=== PATIENT | male | born 1965 | race Caucasian/White ===

== ENCOUNTER 2023-06-27 08:07 | Day surgery (SDC) | payer OTHER ==
[2023-06-25 10:38] VITALS: BMI 29.8
[2023-06-27] MEDS ORDERED: LACTATED RINGERS 1,000 ML IV SCH (08:20)
[2023-06-27 08:32] VITALS: TEMP 97.3
[2023-06-27] MEDS ORDERED: PROPOFOL 10 MG/ML 20 ML VIAL IV ONE (09:48)
--- NOTE | 2023-06-27 09:55 | P.GSHP ---
History of Present Illness H&P Date: 06/27/23 Chief Complaint: Screening colonoscopy This a 58-year-old male presents today for screening colonoscopy. Patient denies a significant GI complaints. Past Medical History Past Medical History: COPD, Hypertension, Thyroid Disorder Additional Past Medical History / Comment(s): States problems with sweatglands that cause boils- currently has boil left axilla and a couple in his groin. History of Any Multi-Drug Resistant Organisms: None Reported Past Surgical History: Orthopedic Surgery Additional Past Surgical History / Comment(s): BROKEN ANKLE SURGERY Past Anesthesia/Blood Transfusion Reactions: No Reported Reaction Past Psychological History: No Psychological Hx Reported Smoking Status: Current every day smoker, Heavy tobacco smoker Past Alcohol Use History: Daily Additional Past Alcohol Use History / Comment(s): SMOKES OVER A PACK / DAY., STARTED SMOKING TEEN. DRINKS LESS THAN A 6 PACK/DAY. Past Drug Use History: None Reported - Past Family History Mother Family Medical History: No Reported History Medications and Allergies Home Medications Medication Instructions Recorded Confirmed Type Albuterol Inhaler [Ventolin Hfa 1 - 2 puff INHALATION Q6H PRN 06/25/23 06/27/23 History Inhaler] Levothyroxine Sodium 112 mcg PO DAILY 06/25/23 06/27/23 History Multivitamins, Thera [Multivitamin 1 tab PO DAILY 06/25/23 06/25/23 History (formulary)] Tiotropium 18 Mcg/Puff [Spiriva] 1 puff INHALATION DAILY 06/25/23 06/27/23 History lisinopriL [Zestril] 10 mg PO DAILY 06/25/23 06/27/23 History Allergies Allergy/AdvReac Type Severity Reaction Status Date / Time No Known Allergies Allergy Verified 06/27/23 08:26 Surgical - Exam Vital Signs Temp Pulse Resp BP Pulse Ox 97.3 F L 107 H 16 140/77 98 06/27/23 08:27 06/27/23 08:27 06/27/23 08:27 06/27/23 08:27 06/27/23 08:27 - General well developed, well nourished, no distress - Eyes PERRL - ENT normal pinna - Neck no masses - Respiratory normal expansion - Cardiovascular Rhythm: regular - Abdomen Abdomen: soft, non tender Assessment and Plan Assessment: We'll perform screening colonoscopy.
--- NOTE | 2023-06-27 10:19 | P.OP ---
Date of Procedure: 06/27/23 Preoperative Diagnosis: Screening colonoscopy Postoperative Diagnosis: Colon polyps Procedure(s) Performed: Screening colonoscopy Anesthesia: MAC Surgeon: Franklyn Lantigua Pathology: other (Colon polyp) Condition: stable Disposition: PACU Description of Procedure: The patient's placed on the endoscopy table in the lateral position. He received IV sedation. Digital rectal exam was performed. This revealed no abnormality. The flexible colonoscope was then placed patient anus passed throughout the entire colon. The ileocecal valve was visualized. The cecum appeared normal. Ascending colon was normal as well. In the proximal transverse colon. There was a small sessile polyp was removed with the cold forcep. The remainder the transverse colon was normal. Scope was brought back the descending colon appeared normal. The sigmoid colon appeared normal. In the rectum was another polyp seen. This is removed with the snare. The scope was withdrawn for patient.
[2023-06-27 10:52] VITALS: BP 123/76; PULSE 91; RESP 20
== END 2023-06-27 11:10 | disposition home or self-care (01) ==
LOC: ORWHC2ENDO 08:07
PROVIDERS: ATTEND Surgery
DX: Z12.11 Encounter for screening for malignant neoplasm of colon (principal); D12.3 Benign neoplasm of transverse colon; D12.8 Benign neoplasm of rectum; F17.210 Nicotine dependence, cigarettes, uncomplicated; Z79.890 Hormone replacement therapy; Z79.51 Long term (current) use of inhaled steroids
CPT/HCPCS: 88305; 45380; 45385; J2704

== ENCOUNTER → 2023-07-15 | Outpatient (CLI) | payer OTHER ==
[2023-07-15 15:22] LABS: Basophils # (A) 0.04 X 10*3/uL (0.00-0.10); Basophils % (A) 0.5 %; Eosinophils # (A) 0.05 X 10*3/uL (0.04-0.35); Eosinophils % (A) 0.6 %; HCT 34.9 % (39.6-50.0); HGB 12.3 d/dL (13.0-17.0); Lymphocytes # (A) 1.96 X 10*3/uL (0.90-5.00); MCH 33.9 pg (27.0-32.0); MCHC 35.2 d/dL (32.0-37.0); MCV 96.1 FL (80.0-97.0); Mean Platelet Volume 8.1 FL (9.5-12.2); Monocytes # (A) 0.57 X 10*3/uL (0.20-1.00); Monocytes % (A) 7.3 %; NRBC Per 100 WBC 0 X 10*3/uL (0.00-0.01); Neutrophils # (A) 5.19 X 10*3/uL (1.80-7.70); Neutrophils % (A) 66.3 %; Platelet Count 151 X 10*3/uL (140-440); RBC 3.63 X 10*6/uL (4.40-5.60); RDW 11.5 % (11.5-14.5); WBC 7.83 X 10*3/uL (4.50-10.00)
[2023-07-15 15:27] LABS: Blood Urea Nitrogen 10.5 mg/dL (9.0-27.0); Calcium 9.2 mg/dL (8.7-10.3); Carbon Dioxide 20.1 mmol/L (21.6-31.8); Chloride 97 mmol/L (96-109); Glucose 86 mg/dL (70-110); Potassium 4.7 mmol/L (3.5-5.5); Sodium 129 mmol/L (135-145)
[2023-07-15 17:06] LABS: Appearance,Urine Clear (Clear); Bilirubin,Urine Negative (Negative); Blood,Urine Negative (Negative); Color,Urine Yellow (Yellow); Ketones,Urine Negative (Negative); Nitrite,Urine Negative (Negative); Specific Gravity,Urine 1.006 (1.001-1.030); Urobilinogen,Urine 0.2 E.U./DL
[2023-07-15 17:18] LABS: Bacteria,Urine None Seen (None Seen)
== END | disposition home or self-care (01) ==
LOC: LABPAT 10:10
PROVIDERS: ATTEND Urology
DX: Z01.812 Encounter for preprocedural laboratory examination (principal); D49.4 Neoplasm of unspecified behavior of bladder; R31.29 Other microscopic hematuria
CPT/HCPCS: 36415; 80048; 81001; 85025; 87086

== ENCOUNTER → 2024-07-22 | Outpatient (CLI) | payer OTHER ==
[2024-07-22 13:45] LABS: Creatinine,Urine Random 64.2 mg/dL; Protein/Creatinine Ratio,Urine 0.187
[2024-07-22 15:01] LABS: BUN/Creat Ratio 10.48 Ratio (12.00-20.00); Calcium 9.4 mg/dL (8.7-10.3); Carbon Dioxide 23.9 mmol/L (21.6-31.8); Chloride 104 mmol/L (96-109); Glucose 114 mg/dL (70-110); Magnesium 2.2 mg/dL (1.5-2.4); Phosphorus 3.7 mg/dL (2.4-5.1); Sodium 139 mmol/L (135-145)
[2024-07-22 15:06] LABS: HCT 35.7 % (39.6-50.0); HGB 11.4 g/dL (13.0-17.0); MCH 26.4 pg (27.0-32.0); MCHC 31.9 g/dL (32.0-37.0); MCV 82.6 FL (80.0-97.0); Mean Platelet Volume 9.2 FL (9.5-12.2); NRBC Per 100 WBC 0 X 10*3/uL (0.00-0.01); Platelet Count 186 X 10*3/uL (140-440); RBC 4.32 X 10*6/uL (4.40-5.60); RDW 14.6 % (11.5-14.5); WBC 6.21 X 10*3/uL (4.50-10.00)
[2024-07-22 15:29] LABS: Appearance,Urine Clear (Clear); Bilirubin,Urine Negative (Negative); Blood,Urine Negative (Negative); Color,Urine Yellow (Yellow); Ketones,Urine Negative (Negative); Nitrite,Urine Negative (Negative); Specific Gravity,Urine 1.008 (1.001-1.030); Urobilinogen,Urine 0.2 E.U./DL
[2024-07-22 22:37] LABS: Microalbumin Creatinine Ratio <20 mg/g Cr (0-30)
== END | disposition home or self-care (01) ==
LOC: LABWHC1 11:17
PROVIDERS: ATTEND Internal Medicine
DX: N17.9 Acute kidney failure, unspecified (principal); N39.0 Urinary tract infection, site not specified; R80.9 Proteinuria, unspecified; D64.9 Anemia, unspecified; N25.81 Secondary hyperparathyroidism of renal origin
CPT/HCPCS: 36415; 80048; 81003; 82043; 82570; 83735; 83970; 84100; 84156; 85027

== ENCOUNTER → 2024-09-16 | Outpatient (CLI) | payer OTHER ==
[2024-09-16 15:13] LABS: Basophils # (A) 0.08 X 10*3/uL (0.00-0.10); Basophils % (A) 1.1 %; Eosinophils # (A) 0.18 X 10*3/uL (0.04-0.35); Eosinophils % (A) 2.4 %; HCT 38.3 % (39.6-50.0); HGB 12.1 g/dL (13.0-17.0); Lymphocytes % (A) 33.4 %; MCH 26.1 pg (27.0-32.0); MCHC 31.6 g/dL (32.0-37.0); MCV 82.5 FL (80.0-97.0); Mean Platelet Volume 8.5 FL (9.5-12.2); Monocytes # (A) 0.42 X 10*3/uL (0.20-1.00); Monocytes % (A) 5.6 %; NRBC Per 100 WBC 0 X 10*3/uL (0.00-0.01); Neutrophils # (A) 4.28 X 10*3/uL (1.80-7.70); Neutrophils % (A) 57.1 %; Platelet Count 229 X 10*3/uL (140-440); RBC 4.64 X 10*6/uL (4.40-5.60); RDW 15.4 % (11.5-14.5); WBC 7.49 X 10*3/uL (4.50-10.00)
[2024-09-16 16:05] LABS: % Iron Saturation 11.26 (15.00-50.00); ALT 29 U/L (10-49); AST 37 U/L (14-35); Albumin 4.3 g/dL (3.8-4.9); Albumin/Globulin Ratio 1.48 Ratio (1.60-3.17); Alkaline Phosphatase 176 U/L (41-126); BUN/Creat Ratio 6.95 Ratio (12.00-20.00); Blood Urea Nitrogen 13.9 mg/dL (9.0-27.0); Calcium 9.5 mg/dL (8.7-10.3); Carbon Dioxide 22.8 mmol/L (21.6-31.8); Chloride 107 mmol/L (96-109); Globulin 2.9 g/dL (1.6-3.3); Glucose 90 mg/dL (70-110); Iron 33 UG/DL (65-175); Potassium 4.7 mmol/L (3.5-5.5); Sodium 142 mmol/L (135-145); Total Bilirubin 0.2 mg/dL (0.3-1.2); Total Iron Binding Capacity 293 UG/DL (228-460); Total Protein 7.2 g/dL (6.2-8.2)
== END | disposition home or self-care (01) ==
LOC: LABWHC1 10:02
PROVIDERS: ATTEND Nurse Practitioner Family
DX: D64.9 Anemia, unspecified (principal); R74.8 Abnormal levels of other serum enzymes
CPT/HCPCS: 36415; 80053; 82728; 83540; 83550; 85025

== ENCOUNTER 2025-01-28 21:06 | Observation (INO) | payer OTHER ==
[2025-01-28 21:16] LABS: Glucose,Whole Blood 81 mg/dL (70-110)
--- NOTE | 2025-01-28 21:39 | ED ---
General Adult HPI - General Chief complaint: Seizure Stated complaint: Seizure Time Seen by Provider: 01/28/25 21:13 Source: patient, RN notes reviewed, old records reviewed Mode of arrival: EMS Limitations: no limitations - History of Present Illness Initial comments: 59-year-old male presenting for evaluation of seizure-like activity both at home and during EMS transport. Patient has remote history of seizure and CVA which occurred about 1 year ago. Family members indicate that he has not had a seizure in the past 1 year. Family states that he was acting abnormal and had a generalized shaking. Patient had a repeat episode that was apparently witnessed by EMS. Patient is able to answer questions but slow to respond and has mild slurred speech. Family states he has been going to speech therapy after his previous CVA 1 year ago they believe that the speech may be slightly worse than baseline. - Related Data Home Medications Medication Instructions Recorded Confirmed Albuterol Inhaler [Ventolin Hfa 1 - 2 puff INHALATION Q6H PRN 06/25/23 07/23/23 Inhaler] Levothyroxine Sodium 112 mcg PO DAILY 06/25/23 07/23/23 Tiotropium 18 Mcg/Puff [Spiriva] 2 puff INHALATION DAILY 06/25/23 07/23/23 lisinopriL [Zestril] 10 mg PO DAILY 06/25/23 07/23/23 Sulfamethox-Tmp 800-160Mg [Bactrim 1 tab PO Q12HR 07/17/23 07/23/23 DS 800-160 mg] Allergies Allergy/AdvReac Type Severity Reaction Status Date / Time No Known Allergies Allergy Verified 07/23/23 14:20 Review of Systems ROS Statement: Those systems with pertinent positive or pertinent negative responses have been documented in the HPI. ROS Other: All systems not noted in ROS Statement are negative. Past Medical History Past Medical History: COPD, Hypertension, Thyroid Disorder Additional Past Medical History / Comment(s): States problems with sweatglands that cause boils- currently has boil left axilla and a couple in his groin. History of Any Multi-Drug Resistant Organisms: None Reported Past Surgical History: Orthopedic Surgery Additional Past Surgical History / Comment(s): BROKEN ANKLE SURGERY Past Anesthesia/Blood Transfusion Reactions: No Reported Reaction Past Psychological History: No Psychological Hx Reported Smoking Status: Current every day smoker, Heavy tobacco smoker Past Alcohol Use History: Daily Past Drug Use History: None Reported - Past Family History Mother Family Medical History: No Reported History General Exam Limitations: no limitations General appearance: alert, in no apparent distress Head exam: Present: atraumatic, normocephalic Eye exam: Present: normal appearance, PERRL ENT exam: Present: normal exam Neck exam: Present: normal inspection. Absent: tenderness, meningismus Respiratory exam: Present: normal lung sounds bilaterally. Absent: respiratory distress, wheezes Cardiovascular Exam: Present: regular rate, normal rhythm GI/Abdominal exam: Present: soft. Absent: distended Extremities exam: Present: normal inspection, normal capillary refill Neurological exam: Present: alert, oriented X3 (Slow to respond), motor sensory deficit (Patient is dysarthric, no localizing features, NIH of 1) Course Vital Signs 01/28/25 21:09 Temperature 98.6 F Pulse Rate 85 Respiratory 16 Rate Blood Pressure 121/106 O2 Sat by Pulse 98 Oximetry - Reevaluation(s) Reevaluation #1: 01/28/25 22:51 Was able to get further history from the who indicates that he has not had a seizure in 1 year but that he does have worsening expressive aphasia and dysarthria when he is tired or at the end of the day. His speech is slightly off baseline but not significantly according to the . He also reports that he has a slight facial droop which also seems to worsen when he is tired. Medical Decision Making - Medical Decision Making Was pt. sent in by a medical professional or institution (, PA, INTERNAL MEDICINE NURSE, urgent care, hospital, or halfway...) When possible be specific @ -No Did you speak to anyone other than the patient for history (EMS, parent, family, police, friend...)? What history was obtained from this source @ -No Did you review nursing and triage notes (agree or disagree)? Why? @ -I reviewed and agree with nursing and triage notes Were old charts reviewed (outside hosp., previous admission, EMS record, old EKG, old radiological studies, urgent care reports/EKG's, halfway records)? Report findings @ -No old charts were reviewed Differential Seizure: Recurrent seizure disorder, febrile seizure, alcohol withdrawal, stimulants, meningitis, encephalitis, intercranial hemorrhage, intracranial tumor, stroke, eclampsia, thyrotoxicosis, hypocalcemia, hyponatremia, hypernatremia, hypomagnesemia, psychogenic, this is not meant to be an all-inclusive list. EKG interpreted by me (3pts min.). @ -Sinus rhythm rate of 69, DC interval 172, QRS duration 101, QTc [address] segment elevation. X-rays interpreted by me (1pt min.). @ -None done CT interpreted by me (1pt min.). @ -The brain showing chronic changes without acute intracranial hemorrhage, CT angiography negative for obstruction or aneurysmal change. U/S interpreted by me (1pt. min.). @ -None done What testing was considered but not performed or refused? (CT, X-rays, U/S, labs)? Why? @ -None What meds were considered but not given or refused? Why? @ -None Did you discuss the management of the patient with other professionals ( professionals i.e. , PA, INTERNAL MEDICINE NURSE, lab, RT, psych nurse, web content & social media manager, home health occupational therapist, teacher, chief administrative officer, disease case manager rn)? Give summary @ - Sheet, will admit Was smoking cessation discussed for >3mins.? @ -No Was critical care preformed (if so, how long)? @ -No Were there social determinants of health that impacted care today? How? (Homelessness, low income, unemployed, alcoholism, drug addiction, transportation, low edu. Level, literacy, decrease access to med. care, prison, rehab)? @ -No Was there de-escalation of care discussed even if they declined (Discuss DNR or withdrawal of care, Hospice)? DNR status @ -No What co-morbidities impacted this encounter? (DM, HTN, Smoking, COPD, CAD, Can cer, CVA, ARF, Chemo, Hep., AIDS, mental health diagnosis, sleep apnea, morbid obesity)? @Seizure, previous CVA with residual deficit. Was patient admitted / discharged? Hospital course, mention meds given and route, prescriptions, significant lab abnormalities, going to OR and other pertinent info. @ -[59-year-old male who presents with seizure activity at home history of seizure disorder currently on Keppra. Initial history limited but throughout the patient's stay in the emergency department further history is obtained from family members. Patient has a CT without contrast showing chronic changes encephalomalacia, no intracranial hemorrhage, CT angiography is negative. Laboratory testing is unremarkable. Patient returns to close to baseline but indicates that his speech is slightly worse than normal. She does indicate that this occurs with stress or fatigue. Patient will be observed overnight, started on IV Keppra monitor with seizure precautions and consultation to neur ology is placed. Undiagnosed new problem with uncertain prognosis? @ -No Drug Therapy requiring intensive monitoring for toxicity (Heparin, Nitro, Insulin, Cardizem)? @ -No Were any procedures done? @ -No Diagnosis/symptom? @ -[Seizure, expressive aphasia, dysarthria Acute, or Chronic, or Acute on Chronic? @ -Acute on chronic Uncomplicated (without systemic symptoms) or Complicated (systemic symptoms)? @ -Default Side effects of treatment? @ -No Exacerbation, Progression, or Severe Exacerbation? @ -No Poses a threat to life or bodily function? How? (Chest pain, USA, ID, pneumonia, PE, COPD, DKA, ARF, appy, cholecystitis, CVA, Diverticulitis, Homicidal, Suicidal, threat to staff... and all critical care pts) @ -Yes, status epilepticus, CVA - Lab Data Result diagrams: 01/28/25 21:30 01/28/25 21:30 Lab Results 01/28/25 01/28/25 01/28/25 Range/Units 21:14 21:30 21:30 WBC 9.1 (3.8-10.6) k/uL RBC 4.87 (4.30-5.90) m/uL Hgb 13.4 (13.0-17.5) gm/dL Hct 40.8 (39.0-53.0) % MCV 83.7 (80.0-100.0) fL MCH 27.5 (25.0-35.0) pg MCHC 32.9 (31.0-37.0) g/dL RDW 14.4 (11.5-15.5) % Plt Count 203 (150-450) k/uL MPV 6.4 Neutrophils % 59 % Lymphocytes % 33 % Monocytes % 4 % Eosinophils % 2 % Basophils % 1 % Neutrophils # 5.3 (1.3-7.7) k/uL Lymphocytes # 3.0 (1.0-4.8) k/uL Monocytes # 0.4 (0-1.0) k/uL Eosinophils # 0.2 (0-0.7) k/uL Basophils # 0.1 (0-0.2) k/uL Sodium 137 (137-145) mmol/L Potassium 3.9 (3.5-5.1) mmol/L Chloride 108 H (98-107) mmol/L Carbon Dioxide 22 (22-30) mmol/L Anion Gap 7 mmol/L BUN 14 (9-20) mg/dL Creatinine 1.99 H (0.66-1.25) mg/dL Est GFR (CKD-EPI)AfAm 42 (>60 ml/min/1.73 sqM) Est GFR (CKD-EPI)NonAf 36 (>60 ml/min/1.73 sqM) Glucose 71 L (74-99) mg/dL POC Glucose (mg/dL) 81 (70-110) mg/dL POC Glu Materials Manager RIKY Damon Calcium 8.9 (8.4-10.2) mg/dL Magnesium 2.0 (1.6-2.3) mg/dL Total Bilirubin 0.6 (0.2-1.3) mg/dL AST 22 (17-59) U/L ALT 15 (4-49) U/L Alkaline Phosphatase 142 H (38-126) U/L Total Protein 7.5 (6.3-8.2) g/dL Albumin 4.2 (3.5-5.0) g/dL Urine Color Urine Appearance (Clear) Urine pH (5.0-8.0) Ur Specific [place] (1.001-1.035) Urine Protein (Negative) Urine Glucose (UA) (Negative) Urine Ketones (Negative) Urine Blood (Negative) Urine Nitrite (Negative) Urine Bilirubin (Negative) Urine Urobilinogen (<2.0) mg/dL Ur Leukocyte Esterase (Negative) Urine Opiates Screen (NotDetected) Ur Oxycodone Screen (NotDetected) Urine Methadone Screen (NotDetected) Ur Barbiturates Screen (NotDetected) U Tricyclic Antidepress (NotDetected) Ur Phencyclidine Scrn (NotDetected) Ur Amphetamines Screen (NotDetected) U Methamphetamines Scrn (NotDetected) U Benzodiazepines Scrn (NotDetected) Urine Cocaine Screen (NotDetected) U Marijuana (THC) Screen (NotDetected) Serum Alcohol <10 mg/dL 04/03/25 Range/Units 22:12 WBC (3.8-10.6) k/uL RBC (4.30-5.90) m/uL Hgb (13.0-17.5) gm/dL Hct (39.0-53.0) % MCV (80.0-100.0) fL MCH (25.0-35.0) pg MCHC (31.0-37.0) g/dL RDW (11.5-15.5) % Plt Count (150-450) k/uL MPV Neutrophils % % Lymphocytes % % Monocytes % % Eosinophils % % Basophils % % Neutrophils # (1.3-7.7) k/uL Lymphocytes # (1.0-4.8) k/uL Monocytes # (0-1.0) k/uL Eosinophils # (0-0.7) k/uL Basophils # (0-0.2) k/uL Sodium (137-145) mmol/L Potassium (3.5-5.1) mmol/L Chloride (98-107) mmol/L Carbon Dioxide (22-30) mmol/L Anion Gap mmol/L BUN (9-20) mg/dL Creatinine (0.66-1.25) mg/dL Est GFR (CKD-EPI)AfAm (>60 ml/min/1.73 sqM) Est GFR (CKD-EPI)NonAf (>60 ml/min/1.73 sqM) Glucose (74-99) mg/dL POC Glucose (mg/dL) (70-110) mg/dL POC Glu Materials Manager ID Calcium (8.4-10.2) mg/dL Magnesium (1.6-2.3) mg/dL Total Bilirubin (0.2-1.3) mg/dL AST (17-59) U/L ALT (4-49) U/L Alkaline Phosphatase (38-126) U/L Total Protein (6.3-8.2) g/dL Albumin (3.5-5.0) g/dL Urine Color Colorless Urine Appearance Clear (Clear) Urine pH 5.5 (5.0-8.0) Ur Specific [place] 1.006 (1.001-1.035) Urine Protein Negative (Negative) Urine Glucose (UA) Trace H (Negative) Urine Ketones Negative (Negative) Urine Blood Negative (Negative) Urine Nitrite Negative (Negative) Urine Bilirubin Negative (Negative) Urine Urobilinogen <2.0 (<2.0) mg/dL Ur Leukocyte Esterase Negative (Negative) Urine Opiates Screen Not Detected (NotDetected) Ur Oxycodone Screen Not Detected (NotDetected) Urine Methadone Screen Not Detected (NotDetected) Ur Barbiturates Screen Not Detected (NotDetected) U Tricyclic Antidepress Not Detected (NotDetected) Ur Phencyclidine Scrn Not Detected (NotDetected) Ur Amphetamines Screen Not Detected (NotDetected) U Methamphetamines Scrn Not Detected (NotDetected) U Benzodiazepines Scrn Not Detected (NotDetected) Urine Cocaine Screen Not Detected (NotDetected) U Marijuana (THC) Screen Not Detected (NotDetected) Serum Alcohol mg/dL Disposition Clinical Impression: Generalized seizure Disposition: ADMITTED IP TO THIS [facility] Condition: Stable Instructions (If sedation given, give patient instructions): Seizure/Epilepsy Discharge Instructions & Follow-Up Is patient prescribed a controlled substance at d/c from ED?: No Referrals: Hill Nye MD [Primary Care Provider] - 1-2 days Time of Disposition: 22:54
[2025-01-28] MEDS: SODIUM CHLORIDE 0.9% 1,000 ML IV STA (21:50)
[2025-01-28 21:52] LABS: Basophils # (A) 0.1 k/uL (0-0.2); Basophils % (A) 1 %; Eosinophils # (A) 0.2 k/uL (0-0.7); Eosinophils % (A) 2 %; HCT 40.8 % (39.0-53.0); HGB 13.4 gm/dL (13.0-17.5); Lymphocytes % (A) 33 %; MCH 27.5 pg (25.0-35.0); MCHC 32.9 g/dL (31.0-37.0); MCV 83.7 fL (80.0-100.0); Mean Platelet Volume 6.4; Monocytes # (A) 0.4 k/uL (0-1.0); Monocytes % (A) 4 %; Neutrophils # (A) 5.3 k/uL (1.3-7.7); Neutrophils % (A) 59 %; Platelet Count 203 k/uL (150-450); RBC 4.87 m/uL (4.30-5.90); RDW 14.4 % (11.5-15.5); WBC 9.1 k/uL (3.8-10.6)
--- NOTE | 2025-01-28 22:09 | CT ---
EXAMINATION TYPE: CT brain wo con CT DLP: 1157.8 mGycm, Automated exposure control for dose reduction was used. DATE OF EXAM: 01/28/2025 9:46 PM COMPARISON: None. CLINICAL INDICATION:Male, 59 years old with history of seizure activity, Pt to ED for seizure like ac tivity lasting approx 1 min per EMS. No prior TECHNIQUE: Brain: Multiple axial CT images of the brain were obtained without IV contrast. . Coronal and sagitta l reformats reviewed. FINDINGS: Brain: Extra-axial spaces: No abnormal extra-axial fluid collections. Ventricular system: Within normal limits Cerebral parenchyma: Cerebral atrophy. No acute intraparenchymal hemorrhage or mass effect. Encephalo malacia within the bilateral temporal parietal watershed regions from prior injury. The boyd-white ju nction is well differentiated. Scattered hypoattenuating areas are seen within the periventricular wh ite matter. Cerebellum: Unremarkable. Mass effect: No evidence of midline shift. Intracranial vasculature: Atherosclerotic calcifications of the intracranial vessels. Soft tissues: Normal. Calvarium/osseous structures: No depressed skull fracture. Paranasal sinuses and mastoid air cells: Clear Visualized orbits: Orbital contents are intact. IMPRESSION: 1. No acute intracranial process. 2. Encephalomalacia within the bilateral temporal parietal watershed regions from prior injury. 3. Nonspecific white matter changes, likely secondary to chronic small vessel ischemic disease. [facility], , 01/28/2025 10:07 PM
--- NOTE | 2025-01-28 22:12 | CT ---
EXAMINATION TYPE: CT angio head neck CT DLP: 493.7 mGycm, Automated exposure control for dose reduction was used. DATE OF EXAM: 01/28/2025 9:57 PM COMPARISON: CT brain of the same date. CLINICAL INDICATION:Male, 59 years old with history of seizure, postictal; PHH, Pt to ED for seizure like activity lasting approx 1 min per EMS. No prior TECHNIQUE: Axially acquired helical CT angiogram of the head and neck was obtained with contrast util izing 75 cc of Isovue-370 administered intravenously. Axial images are supplemented with 3D reconstru ctions which were post-processed at an independent workstation. NASCET criteria used. MIP imaging performed on a separate workstation and submitted for review. FINDINGS: CTA HEAD: No evidence of acute intracranial hemorrhage, mass effect, or midline shift. The ventricles, sulci, a nd cisterns are unremarkable. The visualized portions of the internal carotid arteries, middle cerebral arteries, anterior cerebral arteries, and posterior cerebral arteries are patent. The basilar and vertebral arteries are patent. CTA NECK: Right Carotid System: The common carotid artery and external carotid artery are patent. The carotid bifurcation demonstrate s no evidence of hemodynamically significant stenosis. The remaining portions of the internal carotid artery demonstrate normal size without significant narrowing. Left Carotid System: The common carotid artery and external carotid artery are patent. The carotid bifurcation demonstrate s no evidence of hemodynamically significant stenosis. The remaining portions of the internal carotid artery demonstrate normal size without significant narrowing. Vertebral arteries are patent without evidence hemodynamically significant stenosis. There is a four-vessel aortic arch. The origins of the great vessels are patent. No evidence of hemod ynamically significant stenosis. IMPRESSION: 1. No evidence of dissection of the cervical internal carotid arteries or vertebral arteries or any e vidence of significant stenosis at the carotid bifurcations. 2. No evidence of high-grade stenosis or intracranial aneurysm. [facility], , 01/28/2025 10:10 PM
[2025-01-28 22:16] LABS: ALT 15 U/L (4-49); AST 22 U/L (17-59); African American GFR (CKD) 42 (>60 ml/min/1.73 sqM); Albumin 4.2 g/dL (3.5-5.0); Alcohol <10 mg/dL; Alkaline Phosphatase 142 U/L (38-126); Anion Gap 7 mmol/L; Blood Urea Nitrogen 14 mg/dL (9-20); Calcium 8.9 mg/dL (8.4-10.2); Carbon Dioxide 22 mmol/L (22-30); Chloride 108 mmol/L (98-107); Glucose 71 mg/dL (74-99); Non-African American GFR(CKD) 36 (>60 ml/min/1.73 sqM); Potassium 3.9 mmol/L (3.5-5.1); Sodium 137 mmol/L (137-145); Total Bilirubin 0.6 mg/dL (0.2-1.3); Total Protein 7.5 g/dL (6.3-8.2)
[2025-01-28 22:35] LABS: Appearance,Urine Clear (Clear); Bilirubin,Urine Negative (Negative); Blood,Urine Negative (Negative); Color,Urine Colorless; Glucose,Urine (UA) Trace (Negative); Ketones,Urine Negative (Negative); Leukocyte Esterase,Urine Negative (Negative); Nitrite,Urine Negative (Negative); PH, Urine 5.5 (5.0-8.0); Protein,Urine Negative (Negative); Specific Gravity,Urine 1.006 (1.001-1.035); Urobilinogen,Urine <2.0 mg/dL (<2.0)
[2025-01-28 22:47] LABS: Amphetamine Screen,Urine Not Detected (NotDetected); Barbiturate Screen,Urine Not Detected (NotDetected); Benzodiazepines Screen,Urine Not Detected (NotDetected); Cocaine Screen,Urine Not Detected (NotDetected); Methadone Screen, Urine Not Detected (NotDetected); Opiate Screen,Urine Not Detected (NotDetected); Oxycodone Screen, Urine Not Detected (NotDetected); Phencyclidine Screen,Urine Not Detected (NotDetected); Tricyclic Antidepressant,Urine Not Detected (NotDetected); Urn Cannabinoid Scrn Not Detected (NotDetected)
[2025-01-28] MEDS: levETIRAcetam IV 500 MG/5 ML VIAL IVP SCH (22:49)
[2025-01-28] MEDS ORDERED: NALOXONE 0.4 MG/ML 1 ML VIAL IV PRN (22:50)
[2025-01-28] MEDS ORDERED: ACETAMINOPHEN TAB 325 MG TAB PO PRN (22:50)
[2025-01-28] MEDS: SODIUM CHLORIDE 0.9% 1,000 ML IV SCH (22:51)
[2025-01-29 07:32] LABS: African American GFR (CKD) 45 (>60 ml/min/1.73 sqM); Anion Gap 7 mmol/L; Blood Urea Nitrogen 13 mg/dL (9-20); Calcium 9.1 mg/dL (8.4-10.2); Carbon Dioxide 21 mmol/L (22-30); Chloride 111 mmol/L (98-107); Glucose 84 mg/dL (74-99); Non-African American GFR(CKD) 39 (>60 ml/min/1.73 sqM); Potassium 4.2 mmol/L (3.5-5.1); Sodium 139 mmol/L (137-145)
[2025-01-29 07:57] VITALS: TEMP 97.7
[2025-01-29 14:05] VITALS: BP 135/84; PULSE 70; RESP 16
[2025-01-29] MEDS ORDERED: ALBUTEROL HFA INHALER INHALATION PRN (14:25)
[2025-01-29] MEDS ORDERED: methocarbamoL 500 MG TAB PO PRN (14:25)
[2025-01-29] MEDS ORDERED: traMADol 50 MG TAB PO PRN (14:25)
[2025-01-29] MEDS: MULTIVITAMINS, THERA 1 EACH TAB PO SCH (15:49)
[2025-01-29] MEDS: ASPIRIN 81 MG PO SCH (15:49)
[2025-01-29] MEDS: DAPAGLIFLOZIN PROPANEDIOL 5 MG TABLET PO SCH (15:49)
[2025-01-29] MEDS: ATORVASTATIN 40 MG TAB PO SCH (15:49)
[2025-01-29] MEDS: THIAMINE 100 MG TAB PO SCH (15:49)
[2025-01-29] MEDS: FERROUS SULFATE 325 MG TAB PO SCH (15:49)
[2025-01-29] MEDS: DOXYCYCLINE 100 MG TABLET PO SCH (15:49)
[2025-01-29] MEDS: FOLIC ACID 1 MG TAB PO SCH (15:49)
[2025-01-29] MEDS: LEVOTHYROXINE 50 MCG TAB PO SCH (15:49)
[2025-01-29] MEDS: VITAMIN B12 500 MCG PO SCH (15:50)
[2025-01-29] MEDS ORDERED: FORMOTEROL FUMARATE 20 MCG/2 ML NEBU INHALATION SCH (20:00)
--- NOTE | 2025-01-29 21:26 | HP ---
HISTORY AND PHYSICAL This is a combined history and physical and discharge summary. CHIEF COMPLAINT: Seizure. HISTORY OF PRESENT ILLNESS: A 59-year-old gentleman with a past medical history of seizure disorder, on Keppra, who had apparently generalized tonic-clonic seizure at home. The patient was taken to [facility] and admitted for further evaluation and treatment at this time. The initial CAT scan of the brain showed no acute abnormality, but encephalomalacia with bilateral temporal and parietal watershed area with prior injury. There is no history of any fever, rigors, or chills at this time. Neurology evaluation in progress. PAST MEDICAL HISTORY: History of COPD, hypertension, and hypothyroidism. Rest of the history and rest of the chart is also reviewed. HOME MEDICATIONS: Reviewed and include Ultram. Dose and rest of medication reviewed. ALLERGIES: None. FAMILY HISTORY: No history of heart disease or strokes in the family. SOCIAL HISTORY: Heavy alcohol and heavy tobacco. REVIEW OF SYSTEMS: Fourteen-point review of systems negative except as mentioned earlier. PHYSICAL EXAMINATION: VITAL SIGNS: Pulse 70, blood pressure 135/80, respirations 16. HEENT: Conjunctivae normal. NECK: No JVD. CARDIOVASCULAR: S1, S2. RESPIRATIONS: Breath sounds diminished at the bases. A few scattered rhonchi. ABDOMEN: Soft. LEGS: No edema. NERVOUS SYSTEM: Diffusely weak. SKIN: No rashes. LABORATORY DATA: Reviewed. CT scan reviewed. ASSESSMENT: 1. Generalized tonic-clonic seizures and breakthrough seizures. 2. History of EtOH. 3. History of nicotine dependence. 4. Watershed infarctions in the CAT scan of the brain. 5. Chronic obstructive pulmonary disease. 6. History of nicotine dependence. RECOMMENDATIONS AND DISCUSSION: This is a 59-year-old gentleman, who presented with multiple complex medical issues. We will monitor the patient closely. Continue with the current management, continue with symptomatic treatment. I would recommend to resume the home medications. The patient is on Keppra now. Recommended close followup with primary physician and Neurology in the outpatient setting. The patient is extremely keen on going home at this time. We will discharge the patient once cleared by Neurology. See orders for details. The patient had previous workups, but the patient will need further workup later. No driving for 6 months per [employer] laws. MMODL / IJN: [id number] /
[2025-01-30] MEDS ORDERED: NON FORMULARY DRUG (Umeclidinium Brm/Vilanterol Tr [Anoro Ellipta 62.5-25 Mcg Inh] 1 EACH INHALATION SCH (08:00)
[2025-01-30] MEDS ORDERED: TIOTROPIUM 2.5 MCG INHALER INHALATION SCH (08:00)
--- NOTE | 2025-01-30 15:22 | P.CNNES ---
History of Present Illness Consult date: 01/29/25 Requesting physician: Tim Coreas Reason for Consult: Seizure History of Present Illness: Patient is a 59-year-old right-handed male came to the hospital by ambulance yesterday at 9:06 PM for breakthrough seizure. Patient's was present, who provided most of the history. Patient has history of an acute stroke in end of October or early November 2023 in which he developed some aphasia. He did not seek medical attention. Patient had another stroke in December 2023, which affected his left side of the body, for which it sounds like he received thrombolysis and developed some brain bleed. He underwent MRI of the brain at [facility] and they were found to have 2 strokes. Patient has some residual expressive aphasia since the stroke. He gets facial droop when he is tired. Patient's states that the stroke was believed to be from "fatty tissue from high cholesterol that buds off". He is currently on aspirin 81 mg and statins. Patient's first seizure occurred in end of March 2024 when he had 3 seizures in a row. He was started on Keppra 1000 mg twice daily and has been doing well since then. No further recurrence of seizures, until just prior to arrival this time. Patient's states that yesterday he was at work, came back home. Went to the bed and then came downstairs and was noted to have labored breathing. He wanted to go outside to let the dog out, but he ended up sitting in the chair and then started having a seizure, witnessed by his sister. EMS was called. Patient is edentulous, therefore did not bite his tongue. No loss of control of urine. As per EMS flowsheet, when they arrived, patient was sitting in a recliner inside his home in care of family. Patient sister states, she came downstairs to find him breathing heavy and staring into space. She called 911. When EMS arrived, patient was alert and confused. He was slow to respond to verbal cues and was able to follow some simple commands. Last known well was 3 hours prior. Sister stated he has history of stroke and seizures. Last seizure was last year. Patient began to show signs of decorticate posturing and was given Versed. Posturing subsided, patient became more confused and unable to follow any commands. Patient denies any history of diabetes. Vital signs at the scene was blood pressure 165/85 pulse rate 87 respiration 18 saturation 100%. Patient's vitals on arrival blood pressure 121/106 came down to 136/80, pulse rate 85 temperature 98.6. Patient has been afebrile. Blood test shows normal CBC, CMP with slightly elevated creatinine 1.99. UA negative, urine drug screen negative, blood alcohol level negative. CT head showed no acute intracranial process. Encephalomalacia within the bilateral temporal parietal watershed regions from prior injury. Nonspecific white matter changes, likely secondary to chronic small vessel ischemic disease. I personally reviewed CT head and on my review appears posterior temporal bilaterally. EKG showed sinus rhythm. CTA of head and neck revealed no evidence of dissection of the cervical internal carotid arteries or vertebral arteries or any evidence of significant stenosis at the carotid bifurcations. N o evidence of high-grade stenosis or intracranial aneurysm. Home medications include Keppra 1000 mg twice daily, aspirin 81 mg, Lipitor 40 mg, folic acid thiamine levothyroxine tramadol 50 mg twice daily as needed. Patient sporadically takes tramadol. He received 60 tablets of tramadol, and he has been using it sporadically over 3 months. Patient did take 1 tablet of tramadol shortly before his seizure. He has smoked half pack per day since age 15-16 and still smokes. He used to drink, but has not done for 1 year. Patient denies diabetes, although he is taking Jardiance. He believes that he is taking this medication for "to prevent kidney injury". Review of Systems All pertinent positive and negative review of systems mentioned in the HPI. Otherwise unremarkable. Past Medical History Past Medical History: COPD, Hypertension, Thyroid Disorder Additional Past Medical History / Comment(s): States problems with sweatglands that cause boils- currently has boil left axilla and a couple in his groin. History of Any Multi-Drug Resistant Organisms: None Reported Past Surgical History: Orthopedic Surgery Additional Past Surgical History / Comment(s): BROKEN ANKLE SURGERY Past Anesthesia/Blood Transfusion Reactions: No Reported Reaction Past Psychological History: No Psychological Hx Reported Smoking Status: Current every day smoker, Heavy tobacco smoker Past Alcohol Use History: Daily Additional Past Alcohol Use History / Comment(s): SMOKES OVER A PACK / DAY., STARTED SMOKING TEEN. DRINKS LESS THAN A 6 PACK/DAY. Past Drug Use History: None Reported - Past Family History Mother Family Medical History: No Reported History Medications and Allergies Home Medications Medication Instructions Recorded Confirmed Type Albuterol Inhaler [Ventolin Hfa 2 puff INHALATION RT-Q4H PRN 06/25/23 01/29/25 History Inhaler] Acetaminophen Tab [Tylenol] 650 mg PO Q6HR PRN tab 01/29/25 Rx Aspirin EC [Ecotrin Low Dose] 81 mg PO DAILY 01/29/25 01/29/25 History Atorvastatin [Lipitor] 40 mg PO DAILY 01/29/25 01/29/25 History Doxycycline Monohydrate [Monodox] 100 mg PO DAILY 01/29/25 01/29/25 History Empagliflozin [Jardiance] 10 mg PO AC-BRKFST 01/29/25 01/29/25 History Ferrous Sulfate [Iron (65 MG 325 mg PO Q2D 01/29/25 01/29/25 History Elemental)] Folic Acid 1 mg PO DAILY 01/29/25 01/29/25 History Levothyroxine Sodium [Synthroid] 50 mcg PO DAILY 01/29/25 01/29/25 History Thiamine [Vitamin B-1] 100 mg PO DAILY 01/29/25 01/29/25 History Tiotropium 2.5 Mcg/Puff [Spiriva 2 puff INHALATION RT-DAILY 01/29/25 01/29/25 History Respimat 2.5 Mcg] Umeclidinium Brm/Vilanterol Tr 1 puff INHALATION RT-DAILY 01/29/25 01/29/25 History [Anoro Ellipta 62.5-25 Mcg INH] Vitamin B Complex/Folic Acid 0.4 mg PO DAILY 01/29/25 01/29/25 History [Vitamin B Complex] Vitamin B-12 500mcg Chewable 500 mcg PO DAILY 01/29/25 01/29/25 History levETIRAcetam [Keppra] 1,000 mg PO BID 01/29/25 01/29/25 History methocarbamoL [Robaxin] 500 mg PO QID PRN 01/29/25 01/29/25 History Allergies Allergy/AdvReac Type Severity Reaction Status Date / Time No Known Allergies Allergy Verified 01/29/25 08:30 Physical Examination - Vital Signs Vital Signs: Vital Signs Temp Pulse Pulse Pulse Resp BP BP 01/29/25 09:00 67 01/29/25 07:00 97.7 F 67 15 111/72 01/29/25 00:19 98.0 F 77 15 119/68 01/28/25 23:33 98.6 F 01/28/25 23:20 76 18 136/80 01/28/25 21:09 98.6 F 85 16 121/106 Pulse Ox 01/29/25 09:00 01/29/25 07:00 99 01/29/25 00:19 100 01/28/25 23:33 01/28/25 23:20 99 01/28/25 21:09 98 Intake and Output 01/28/25 01/29/25 01/29/25 22:59 06:59 14:59 Other: Voiding Method Toilet # Voids 1 2 Weight 97.795 kg 97.795 kg Patient is a middle aged male, in no acute distress. Patient is alert awake, having his lunch. Patient has significant expressive aphasia. He knows the ear, but not the earlobe. He was able to name the first but not the knuckles. He can name pen and button. He cannot repeat at all. He cannot write. He is able to read. Speech and language functions are normal. Patient can name and repeat very well. No aphasia or dysarthria. Attention, concentration and fund of knowledge is adequate. On cranial nerve examination, pupils are equal, round and reacting to light, visual schumacher are full on confrontation, with no neglect on double simultaneous stimulation. Extraocular muscles are intact with no nystagmus. Face is symmetric, tongue protrudes to the midline. Palatal elevation and sensation normal, hearing and shoulder shrug normal, facial sensation normal. On muscle strength testing, there is no pronator drift. Patient has significant issue with his left shoulder with pain, therefore not checked. Rest of the examination in the upper and lower limbs are normal. Deep tendon reflexes are symmetric 2 at the biceps, 2 brachioradialis, 2 at the knees and absent ankles and plantars downgoing. Sensory to touch is equal with no neglect on double simultaneous stimulation. Cerebellar function showed no ataxia for [id number] testing. No dysdiadochokinesia. No ataxia for [id number] testing on either side. Tone and bulk of muscles normal. Gait deferred.. On general examination, there is no carotid bruit or murmur, S1-S2 audible. Chest is clear on consultation. Abdomen is soft nontender. No organomegaly, bowel sounds present. Peripheral pulses are present. No peripheral edema. Results - Laboratory Findings CBC and BMP: 01/28/25 21:30 01/29/25 06:51 Abnormal Lab Findings: Abnormal Labs 01/28/25 01/28/25 01/29/25 21:30 22:12 06:51 Chloride 108 H 111 H Carbon Dioxide 21 L Creatinine 1.99 H 1.86 H Glucose 71 L Alkaline Phosphatase 142 H Urine Glucose (UA) Trace H Assessment and Plan Assessment: * Breakthrough seizure, likely related to lowering of seizure threshold from use of tramadol. * Seizure disorder since March 2024 when he had 3 seizures [id number]. He has been stable on Keppra, with no seizures until this current breakthrough seizure last night. * History of multiple strokes with residual expressive aphasia * Tobacco use * Hypertension Plan: * Patient's seizure has been very well-controlled on Keppra 1000 mg twice daily. He will be continued on the same. * Stop tramadol, as it probably lowered the seizure threshold. * Patient follows up with Dr. Keller office, and has an appointment on 02/02/2025. * CTA of head and neck revealed no evidence of dissection of the cervical internal carotid arteries or vertebral arteries or any evidence of significant stenosis at the carotid bifurcations. No evidence of high-grade stenosis or intracranial aneurysm. * I spoke to patient's about patient's current neurological status. I have never seen patient in the past. Per patient's , he is completely back to baseline. Patient is very desperate to go home. We will hold off on EEG or any other testing. * Neurologically clear for discharge. * Patient and his knows about seizure restrictions including no driving for 6 months, climbing ladders, operating dangerous machinery or swimming * Thank you for the consult.
--- NOTE | 2025-01-31 13:48 | P.DS ---
Providers Date of admission: 01/28/25 22:51 Expected date of discharge: 01/29/25 Attending physician: Roge Gomez MD Consults: 01/28/25 22:50 Consult Physician Routine Consulting Provider: Chase Loza Consult Reason/Comments: seizure Do you want consulting provider notified?: Yes Primary care physician: Hill Nye MD Hospital Course: Final diagnosis Generalized tonic-clonic seizure and breakthrough seizure History of EtOH, has not drink in over a year History of nicotine dependence, continued and ongoing Watershed infarctions on CT scan of the brain Chronic obstructive pulmonary disease, not in exacerbation Obesity with a BMI of 30.9 GI prophylaxis DVT prophylaxis Full code Discharge disposition Patient is being discharged in a stable condition with guarded prognosis to home. Patient will follow-up with Dr. Nye in the outpatient setting upon discharge. Patient is to continue with current medication regimen and close outpatient follow-up with neurologist as scheduled. Total time taken is greater than 35 minutes. Hospital course This is a 59-year-old male who was recently admitted with seizure with breakthrough seizure. Patient follows with 's office in the outpatient setting with at bedside reporting he has been compliant with medications. Patient was noted to have 2 seizures and sent here for further evaluation. Patient was evaluated by neurologist here and cleared the patient for discharge as patient is extremely keen on going home today. Patient will continue current regimen and outpatient follow-up this week with his neurologist. Please refer to neurology consultation note for further HPI. Currently no reports of chest pain, shortness of breath, or palpitations. Patient is afebrile. No reports of nausea or vomiting and patient is tolerating diet. Patient will be discharged home today. Guarded prognosis Physical exam: Gen: This is a 59-year-old male who is awake, alert and oriented x 3, well-de veloped, appears older than stated age, obese, unkempt HEENT: Head is atraumatic, normocephalic. Pupils equal, round. Sclerae is anicteric. NECK: Supple. No JVD. No lymphadenopathy. No thyromegaly. LUNGS: Diminished breath sounds bilaterally otherwise clear to auscultation. No wheezes or rhonchi. No intercostal retractions. HEART: S1, S2 are muffled ABDOMEN: Soft. Obese. Bowel sounds are present. No masses. No tenderness. EXTREMITIES: No pedal edema. No calf tenderness. NEUROLOGICAL: Patient is awake, alert and oriented x3. Cranial nerves 2 through 12 are grossly intact. Please refer to medication reconciliation sheet for a list of medications. The impression and plan of care has been dictated by Yue Sewell, Nurse Practitioner as directed. Dr. Randal MD I have performed a history and examination and MDM of this patient, discussed the same with the dictator, and agree with the dictator's assessment and plan as written ,documented as a scribe. Based on total visit time, I have performed more than 50% of the visit. Patient Condition at Discharge: Stable Plan - Discharge Summary New Discharge Prescriptions: New Acetaminophen Tab [Tylenol] 650 mg PO Q6HR PRN tab PRN Reason: Mild Pain Or Fever > 100.5 Continue Albuterol Inhaler [Ventolin Hfa Inhaler] 2 puff INHALATION RT-Q4H PRN PRN Reason: Shortness Of Breath Thiamine [Vitamin B-1] 100 mg PO DAILY Folic Acid 1 mg PO DAILY Levothyroxine Sodium [Synthroid] 50 mcg PO DAILY Atorvastatin [Lipitor] 40 mg PO DAILY Aspirin EC [Ecotrin Low Dose] 81 mg PO DAILY Doxycycline Monohydrate [Monodox] 100 mg PO DAILY methocarbamoL [Robaxin] 500 mg PO QID PRN PRN Reason: Muscle Spasm Umeclidinium Brm/Vilanterol Tr [Anoro Ellipta 62.5-25 Mcg INH] 1 puff INHALATION RT-DAILY Ferrous Sulfate [Iron (65 MG Elemental)] 325 mg PO Q2D Tiotropium 2.5 Mcg/Puff [Spiriva Respimat 2.5 Mcg] 2 puff INHALATION RT-DAILY levETIRAcetam [Keppra] 1,000 mg PO BID Vitamin B Complex/Folic Acid [Vitamin B Complex] 0.4 mg PO DAILY Empagliflozin [Jardiance] 10 mg PO AC-BRKFST Vitamin B-12 500mcg Chewable 500 mcg PO DAILY Discontinued traMADol HCL 50 mg PO BID PRN PRN Reason: Pain Discharge Medication List Albuterol Inhaler [Ventolin Hfa Inhaler] 2 puff INHALATION RT-Q4H PRN 06/25/23 [History] Acetaminophen Tab [Tylenol] 650 mg PO Q6HR PRN tab 01/29/25 [Rx] Aspirin EC [Ecotrin Low Dose] 81 mg PO DAILY 01/29/25 [History] Atorvastatin [Lipitor] 40 mg PO DAILY 01/29/25 [History] Doxycycline Monohydrate [Monodox] 100 mg PO DAILY 01/29/25 [History] Empagliflozin [Jardiance] 10 mg PO AC-BRKFST 01/29/25 [History] Ferrous Sulfate [Iron (65 MG Elemental)] 325 mg PO Q2D 01/29/25 [History] Folic Acid 1 mg PO DAILY 01/29/25 [History] Levothyroxine Sodium [Synthroid] 50 mcg PO DAILY 01/29/25 [History] Thiamine [Vitamin B-1] 100 mg PO DAILY 01/29/25 [History] Tiotropium 2.5 Mcg/Puff [Spiriva Respimat 2.5 Mcg] 2 puff INHALATION RT-DAILY 01/29/25 [History] Umeclidinium Brm/Vilanterol Tr [Anoro Ellipta 62.5-25 Mcg INH] 1 puff INHALATION RT-DAILY 01/29/25 [History] Vitamin B Complex/Folic Acid [Vitamin B Complex] 0.4 mg PO DAILY 01/29/25 [History] Vitamin B-12 500mcg Chewable 500 mcg PO DAILY 01/29/25 [History] levETIRAcetam [Keppra] 1,000 mg PO BID 01/29/25 [History] methocarbamoL [Robaxin] 500 mg PO QID PRN 01/29/25 [History] Follow up Appointment(s)/Referral(s): Hill Nye MD [Primary Care Provider] - 1-2 days Patricia Mcclelland MD [Medical Doctor] - 1 Week Patient Instructions/Handouts: Seizure/Epilepsy Discharge Instructions & Follow-Up Activity/Diet/Wound Care/Special Instructions: Activity limited until follow-up Follow-up with primary care provider on discharge Follow-up with primary neurologist this week Continue taking medications as prescribed Recommend holding Ultram at this time Discharge Disposition: HOME SELF-CARE
== END 2025-01-29 16:56 | disposition home or self-care (01) ==
LOC: EC 21:06 → 6NMEDSUR 22:51
PROVIDERS: ADMIT Internal Medicine; ATTEND Internal Medicine
DX: R56.9 Unspecified convulsions (principal); I10 Essential (primary) hypertension; J44.9 Chronic obstructive pulmonary disease, unspecified; E03.9 Hypothyroidism, unspecified; I69.320 Aphasia following cerebral infarction; F17.200 Nicotine dependence, unspecified, uncomplicated; E66.9 Obesity, unspecified; Z68.30 Body mass index [BMI] 30.0-30.9, adult; Z79.82 Long term (current) use of aspirin; Z79.84 Long term (current) use of oral hypoglycemic drugs; Z79.890 Hormone replacement therapy; Z79.899 Other long term (current) drug therapy
CPT/HCPCS: 96376; 96374; 99285; 36415; 93005; 80053; 80048; 80177; 83735; 85025; 81003; 80306; 80320; 70496; 70450; 70498; G0378 ×2; J1953 ×2; Q9967

== ENCOUNTER → 2025-02-02 | Outpatient (CLI) | payer OTHER ==
[2025-02-02 15:38] LABS: ALT 14 U/L (10-49); AST 22 U/L (14-35); Chol/HDL Ratio 2.91 Ratio; LDL Cholesterol,Calculated 37.6 mg/dL (0.0-131.0)
== END | disposition home or self-care (01) ==
LOC: LABWHC1 09:47
PROVIDERS: ATTEND Internal Medicine Interventional Cardiology
DX: E78.00 Pure hypercholesterolemia, unspecified (principal)
CPT/HCPCS: 36415; 80061; 84450; 84460

== ENCOUNTER → 2025-05-21 | Outpatient (CLI) | payer OTHER ==
[~2025-05-21] MED LIST: SODIUM CHLORIDE 0.9% 250 ML in EMPTY BAG 1 BAG IV PRN; SODIUM CHLORIDE 0.9% 500 ML 500 ML in EMPTY BAG 1 BAG IV PRN
[2025-05-21 07:39] VITALS: BP 119/69; PULSE 80; RESP 16; TEMP 98.3
[2025-05-21] MEDS: SODIUM CHLORIDE 0.9% 500 ML 500 ML IV NR (07:40)
[2025-05-21 09:42] LABS: Basophils # (A) 0.05 10*3/uL (0.00-0.10); Basophils % (A) 0.7 %; Eosinophils # (A) 0.14 10*3/uL (0.04-0.35); Eosinophils % (A) 1.8 %; HCT 40.6 % (39.6-50.0); HGB 13.3 g/dL (13.0-17.0); Lymphocytes # (A) 1.85 10*3/uL (0.90-5.00); Lymphocytes % (A) 24.1 %; MCH 28.2 pg (27.0-32.0); MCHC 32.8 g/dL (32.0-37.0); MCV 86.0 fL (80.0-97.0); Monocytes # (A) 0.44 10*3/uL (0.20-1.00); Monocytes % (A) 5.7 %; Neutrophils # (A) 5.17 10*3/uL (1.80-7.70); Neutrophils % (A) 67.4 %; Platelet Count 180 10*3/uL (140-440); RBC 4.72 10*6/uL (4.40-5.60); RDW 15.8 % (11.5-14.5); WBC 7.67 10*3/uL (4.50-10.00)
== END ==
LOC: PROCWHC3 07:18
PROVIDERS: ATTEND Physician Assistant
DX: K14.8 Other diseases of tongue (principal); R59.0 Localized enlarged lymph nodes; K12.1 Other forms of stomatitis; N18.32 Chronic kidney disease, stage 3b; I69.30 Unspecified sequelae of cerebral infarction; E78.5 Hyperlipidemia, unspecified
CPT/HCPCS: 83036; 85025; 96360; 96361

== ENCOUNTER → 2025-05-21 | Outpatient (CLI) | payer OTHER ==
[2025-04-14 08:28] LABS: African American GFR (CKD) 37 (>60 ml/min/1.73 sqM); Blood Urea Nitrogen 27 mg/dL (9-20); Non-African American GFR(CKD) 32 (>60 ml/min/1.73 sqM)
--- NOTE | 2025-05-22 02:47 | CT ---
EXAMINATION TYPE: CT soft tissue neck w con DATE OF EXAM: 05/21/2025 10:58 AM COMPARISON: None. CLINICAL INDICATION: Male, 60 years old with history of K14.8 DISEASES OF TONGUE K12.1 STOMATITIS R59 .0, Diseases of tongue and stomatitis. TECHNIQUE: Axial images at 3 mm thick sections. Reconstructed images in the coronal plane and sagitt al plane are reviewed. Contrast used:80 ml mL of Isovue 300 with IV Contrast, (none if empty) Oral contrast used: (none if empty) CT DLP: 508 mGycm, Automated exposure control for dose reduction was used. FINDINGS: Limited CT sections are obtained the lung apices. The lung apices appear clear. CT neck: The torus tubarius and fossa of Rosenmuller are normal. Lathmaker spaces are normal. Para nasal sinuses and mastoid air cells are clear. Parotid glands appear normal and symmetrical. Submandibular glands, are normal. Parapharyngeal spac es are normal. No suspicious adenopathy is evident. The hypopharynx appears within normal limits. Vocal cord level appear symmetrical. Thyroid as visualized is normal. Osseous structures are normal. IMPRESSION: 1. No suspicious mass is identified. Patient reported mass is not clearly identified. Follow-up can b e performed as clinically indicated [facility], Workstation: [facility], 05/22/2025 2:45 AM
== END | disposition home or self-care (01) ==
LOC: RADCTMAIN 04-14 07:43
PROVIDERS: ATTEND Family Medicine
DX: K14.8 Other diseases of tongue (principal); K12.1 Other forms of stomatitis; R59.0 Localized enlarged lymph nodes
CPT/HCPCS: 82565; 84520; 70491; Q9967